=== PATIENT | female | born 1990 | race African-American/Black ===

== ENCOUNTER 2017-09-23 22:11 | Emergency (ER) | payer MEDICAID ==
[~2017-09-23] VITALS: Ht 172.7 cm; Wt 128.2 kg
[~2017-09-23 22:11] MED LIST: BENADRYL50 MG PO; CELEXA 20MG20 MG/TAB PO; CEPHALEXIN500 M1 PO; FASTIN30 MG; GLUCOPHAGE500 MG/TAB; MASON NATURAL2000 IU PO; MOTRIN 800800 MG/TAB PO; NAPROSYN 2250 MG/TAB PO; NATURAL IRON65 MG PO; NORCO 325 MG-51 TAB PO; PERCOCET 325 MG1 TA2 PO; PERCOCET 325 MG1 TAB PO; PHENERGAN 25 TA25 MG PO; PRENATAL1 TA1 PO; SENOKOT S 50 MG1 TAB PO
[2017-09-23 22:21] VITALS: BP 146/82; TEMP 99.1
[2017-09-23 23:37] VITALS: PULSE 100
== END 2017-09-23 23:30 | disposition home or self-care (01) ==
LOC: COL.ER 22:11
DX: M54.5 Low back pain (principal); M25.551 Pain in right hip; F41.9 Anxiety disorder, unspecified; F32.9 Major depressive disorder, single episode, unspecified; F17.210 Nicotine dependence, cigarettes, uncomplicated; W18.2XXA Fall in (into) shower or empty bathtub, initial encounter
CPT/HCPCS: J1885

== ENCOUNTER 2020-08-22 19:33 | Emergency (ER) | payer MEDICAID ==
[~2020-08-22] VITALS: Ht 172.7 cm; Wt 118.2 kg
[2020-08-22 19:40] VITALS: BP 150/81; PULSE 105; TEMP 98.1
[2020-08-22] MEDS ORDERED: DOXYCYCLINE 10100 MG PO (19:56)
== END 2020-08-22 20:12 | disposition home or self-care (01) ==
LOC: COL.ER 19:33
DX: L03.113 Cellulitis of right upper limb (principal); Z87.891 Personal history of nicotine dependence; W57.XXXA Bitten or stung by nonvenomous insect and other nonvenomous arthropods, initial encounter
CPT/HCPCS: J1885

== ENCOUNTER → 2020-10-14 | Emergency (ER) | payer MEDICAID ==
[~2020-10-14] VITALS: Ht 172.7 cm; Wt 122.7 kg
[~2020-10-14] MED LIST changes: +DOXYCYCLINE 10100 MG PO
[2020-10-14 19:24] VITALS: BP 127/70; PULSE 93; TEMP 98.1
== END ==
LOC: COL.ER 19:23
DX: S51.811A Laceration without foreign body of right forearm, initial encounter (principal); W18.02XA Striking against glass with subsequent fall, initial encounter
CPT/HCPCS: J2270

== ENCOUNTER 2021-08-13 13:20 | Emergency (ER) | payer MEDICAID ==
[~2021-08-13] VITALS: Ht 172.7 cm; Wt 127.3 kg
[2021-08-13 13:27] VITALS: TEMP 98
[2021-08-13 14:00] LABS: COLLECTION METHOD CLEAN CATCH
[2021-08-13 14:15] LABS: MUCOUS Present (NOT PRESENT); PH 5 (5-8); URINE APPEARANCE Hazy (CLEAR/HAZY); URINE BACTERIA None Seen /hpf (NONE SEEN); URINE BILIRUBIN Negative (NEGATIVE); URINE BLOOD Negative (NEGATIVE); URINE COLOR Yellow (YELLOW); URINE GLUCOSE Negative (NEGATIVE); URINE KETONE Trace (NEGATIVE); URINE LEUKOCYTE ESTERASE Trace (NEGATIVE); URINE NITRATE Negative (NEGATIVE); URINE PROTEIN(semi-quant) Negative (NEGATIVE); URINE UROBILINOGEN Negative (NEGATIVE)
[2021-08-13] MEDS ORDERED: FLAGYL500 MG PO (15:14)
[2021-08-13] MEDS ORDERED: AMOXICILLIN 8751 TAB PO (15:14)
[2021-08-13 15:33] VITALS: BP 134/79; PULSE 94
== END 2021-08-13 15:33 | disposition home or self-care (01) ==
LOC: COL.ER 13:20
PROVIDERS: Nurse Practitioner Primary Care
DX: A59.09 Other urogenital trichomoniasis (principal); F17.210 Nicotine dependence, cigarettes, uncomplicated; Z28.310 Unvaccinated for COVID-19